=== PATIENT | male | born 1995 | race Caucasian/White ===

== ENCOUNTER 2023-07-12 10:34 | Emergency (ER) | payer OTHER ==
[~2023-07-12] VITALS: Ht 182.9 cm; Wt 82.9 kg
[~2023-07-12 10:34] MED LIST: IBUP-1984 PO; NO HOME MEDS
[2023-07-12 11:03] VITALS: BP 136/73; PULSE 103; RESP 18; TEMP 99.4; O2SAT 100
[2023-07-12] MEDS ORDERED: HYDR-3965 PO ×2 (13:15→13:51)
[2023-07-12] MEDS ORDERED: IBUP-1984 PO (13:25)
== END 2023-07-12 14:03 | disposition home or self-care (01) ==
LOC: ER 10:34
DX: S92.901A Unspecified fracture of right foot, initial encounter for closed fracture (principal); J45.909 Unspecified asthma, uncomplicated; Z79.899 Other long term (current) drug therapy; W22.8XXA Striking against or struck by other objects, initial encounter; Y93.89 Activity, other specified; Y92.89 Other specified places as the place of occurrence of the external cause; Y99.8 Other external cause status
CPT/HCPCS: 73630; 99283; L4360